=== PATIENT | female | born 2000 | race Two or more races ===

== ENCOUNTER 2023-06-14 02:43 | Emergency (ER) | payer OTHER ==
[~2023-06-14] VITALS: Ht 154.9 cm; Wt 65.0 kg
[2023-06-14 03:10] VITALS: BP 104/68; PULSE 93; RESP 16; TEMP 98.3
[2023-06-14 05:29] LABS: Urine Bacteria NONE SEEN /hpf (None Seen); Urine Blood Negative /uL (Negative); Urine Clarity Clear (Clear); Urine Color Colorless (Yellow); Urine Protein, UAD Negative (Negative); Urine Specific Gravity 1.015 (1.001-1.035); Urine Urobilinogen Normal (Negative); Urine WBC 5 /hpf (0 - 5)
[2023-06-14 07:08] LABS: Vaginal Trichomonas Present
[2023-06-14 07:10] LABS: Vaginal Bacteria Moderate; Vaginal Clue Cells Few
[2023-06-14 07:12] LABS: Vaginal Epithelial Cells Moderate
[2023-06-14 07:19] VITALS: O2SAT 100
[2023-06-14] MEDS ORDERED: AZITHROMYCIN 250 MG TAB PO ONE (07:45)
[2023-06-14] MEDS ORDERED: cefTRIAXone SODIUM 250 MG VL IM ONE (07:45)
[2023-06-14] MEDS ORDERED: LIDOCAINE 1% HCL (LOCAL ANESTH.) INJ 20ML MDV ID ONE (08:00)
[2023-06-14] MEDS ORDERED: MET500T PO (08:05)
[2023-06-14] MEDS ORDERED: FLUC200T PO (08:05)
[2023-06-14] MEDS ORDERED: IBUP-1454 PO (08:05)
[2023-06-14] MEDS ORDERED: NITR-87 PO (08:05)
[2023-06-15 23:06] LABS: Chlamydia Trachomatis, NAA Negative (Negative); Neisseria gonorrhoeae, NAA Negative (Negative)
== END 2023-06-14 08:38 | disposition home or self-care (01) ==
LOC: ER 02:45
DX: N39.0 Urinary tract infection, site not specified (principal); N76.0 Acute vaginitis; A59.9 Trichomoniasis, unspecified
CPT/HCPCS: 36415; 81001; 84702; 87210; 87491; 87591; 96372; 99283; J0696; J2001